=== PATIENT | female | born 1990 | race Caucasian/White ===

== ENCOUNTER → 2016-11-19 | Outpatient (CLI) | payer BC ==
[~2016-11-19] MED LIST: DICL50TA4 PO; LEVO75TA PO; NF-SKEL800 PO; OSLT75CRX PO
--- OUTSIDE RECORDS SUMMARY | 2016-11-19 08:38 | XMS REPORT | Continuity of Care Document ---
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 Plan of Care No plan of care. Functional Status No functional status results. Allergies, Adverse Reactions, Alerts Allergen Type Severity Reaction Status Last Updated No Known Drug Allergies Active 09/05/14 Immunizations Name Given Type Date of Influenza Vaccine 08/04/14 Historical Vital Signs Acute Vital Signs Vital Response Date/Time Temperature (Fahrenheit) 98.2 degrees F (97.6 - 99.5) Temperature (Calculated Celsius) 36.16705 degrees C (36.4 - 37.5) Pulse Rate (adult) 89 bpm (60 - 90) Respiratory Rate 20 bpm (12 - 24) O2 Sat by Pulse Oximetry 99 % (88 - 100) Blood Pressure 144/94 mm Hg Pain Pain Intensity 0 Height (Feet) 5 feet Height (Inches) 7 inches Height (Calculated Centimeters) 170.742676 cm Weight (Pounds) 147 pounds Weight (Calculated Kilograms) 66.710813 kilograms Calculated BMI 23.02 Results Laboratory Results Test Name Result Units Flags Reference Collection Date/Time Result Date/ Time Comments White Blood Count 9.9 10^3/uL 4.3-11.0 09/05/2014 7:59pm 09/05/2014 8: 15pm Red Blood Count 4.46 10^6/uL 4.35-5.85 09/05/2014 7:59pm 09/05/2014 8: 15pm Hemoglobin 13.5 G/DL 11.5-16.0 09/05/2014 7:59pm 09/05/2014 8:15pm Hematocrit 39 % 35-52 09/05/2014 7:59pm 09/05/2014 8:15pm Mean Corpuscular Volume 88 FL 80-99 09/05/2014 7:59pm 09/05/2014 8: 15pm Mean Corpuscular Hemoglobin 30 PG 25-34 09/05/2014 7:59pm 09/05/2014 8: 15pm Mean Corpuscular Hemoglobin Concent 34 G/DL 32-36 09/05/2014 7:59pm 8:15pm Red Cell Distribution Width 12.5 % 10.0-14.5 09/05/2014 7:59pm 2013 8:15pm Platelet Count 232 10^3/uL 130-400 09/05/2014 7:59pm 09/05/2014 8:15pm Mean Platelet Volume 10.2 FL 7.4-10.4 09/05/2014 7:59pm 09/05/2014 8: 15pm Neutrophils (%) (Auto) 71 % 42-75 09/05/2014 7:59pm 09/05/2014 8:15pm Lymphocytes (%) (Auto) 22 % 12-44 09/05/2014 7:59pm 09/05/2014 8:15pm Monocytes (%) (Auto) 6 % 0-12 09/05/2014 7:59pm 09/05/2014 8:15pm Eosinophils (%) (Auto) 1 % 0-10 09/05/2014 7:59pm 09/05/2014 8:15pm Basophils (%) (Auto) 0 % 0-10 09/05/2014 7:59pm 09/05/2014 8:15pm Neutrophils # (Auto) 7.1 X 10^3 1.8-7.8 09/05/2014 7:59pm 09/05/2014 8: 15pm Lymphocytes # (Auto) 2.1 X 10^3 1.0-4.0 09/05/2014 7:59pm 09/05/2014 8: 15pm Monocytes # (Auto) 0.6 X 10^3 0.0-1.0 09/05/2014 7:59pm 09/05/2014 8: 15pm Eosinophils # (Auto) 0.1 10^3/uL 0.0-0.3 09/05/2014 7:59pm 09/05/2014 8 :15pm Basophils # (Auto) 0.0 10^3/uL 0.0-0.1 09/05/2014 7:59pm 09/05/2014 8: 15pm Urine Color YELLOW 09/05/2014 7:50pm 09/05/2014 8:24pm Urine Clarity CLEAR 09/05/2014 7:50pm 09/05/2014 8:24pm Urine pH 7 5-9 09/05/2014 7:50pm 09/05/2014 8:24pm Urine Specific [place] 1.005 * 1.016-1.022 09/05/2014 7:50pm 2013 8:24pm Urine Protein NEGATIVE NEGATIVE 09/05/2014 7:50pm 09/05/2014 8:24pm Urine Glucose (UA) NEGATIVE NEGATIVE 09/05/2014 7:50pm 09/05/2014 8: 24pm Urine RBC (Auto) NEGATIVE NEGATIVE 09/05/2014 7:50pm 09/05/2014 8: 24pm Urine Ketones NEGATIVE NEGATIVE 09/05/2014 7:50pm 09/05/2014 8:24pm Urine Nitrite NEGATIVE NEGATIVE 09/05/2014 7:50pm 09/05/2014 8:24pm Urine Bilirubin NEGATIVE NEGATIVE 09/05/2014 7:50pm 09/05/2014 8: 24pm Urine Urobilinogen NORMAL MG/DL NORMAL 09/05/2014 7:50pm 09/05/2014 8: 24pm Urine Leukocyte Esterase 1+ * NEGATIVE 09/05/2014 7:50pm 09/05/2014 8: 24pm Urine RBC NONE /HPF 09/05/2014 7:50pm 09/05/2014 8:24pm Urine WBC 0-2 /HPF 09/05/2014 7:50pm 09/05/2014 8:24pm Urine Bacteria TRACE /HPF 09/05/2014 7:50pm 09/05/2014 8:24pm Urine Squamous Epithelial Cells 2-5 /HPF 09/05/2014 7:50pm 2013 8:24pm Urine Crystals NONE /LPF 09/05/2014 7:50pm 09/05/2014 8:24pm Urine Casts NONE /LPF 09/05/2014 7:50pm 09/05/2014 8:24pm Urine Mucus NEGATIVE /LPF 09/05/2014 7:50pm 09/05/2014 8:24pm Urine Culture Indicated NO 09/05/2014 7:50pm 09/05/2014 8:24pm Sodium Level 137 MMOL/L 135-145 09/05/2014 7:59pm 09/05/2014 8:34pm Potassium Level 3.6 MMOL/L 3.6-5.0 09/05/2014 7:59pm 09/05/2014 8:34pm Chloride Level 104 MMOL/L 98-107 09/05/2014 7:59pm 09/05/2014 8:34pm Carbon Dioxide Level 21 MMOL/L 21-32 09/05/2014 7:59pm 09/05/2014 8: 34pm Blood Urea Nitrogen 10 MG/DL 7-18 09/05/2014 7:59pm 09/05/2014 8:34pm Creatinine 0.65 MG/DL 0.60-1.30 09/05/2014 7:59pm 09/05/2014 8:34pm BUN/Creatinine Ratio 15 09/05/2014 7:59pm 09/05/2014 8:34pm Estimat Glomerular Filtration Rate > 60 09/05/2014 7:59pm 2013 8:34pm GFR INTERPRETIVE DATA UNITS FOR ESTIMATED GFR (eGFR): mL/min/1.73 M2 REFERENCE RANGE FOR ESTIMATED GFR (eGFR) eGFR NORMAL eGFR >60 MODERATELY DECREASED eGFR 30-59 SEVERLY DECREASED eGFR 15-29 KIDNEY FAILURE <15 (OR DIALYSIS) Glucose Level 82 MG/DL 70-105 09/05/2014 7:59pm 09/05/2014 8:34pm Calcium Level 9.5 MG/DL 8.5-10.1 09/05/2014 7:59pm 09/05/2014 8:34pm Total Bilirubin 0.3 MG/DL 0.1-1.0 09/05/2014 7:59pm 09/05/2014 8:34pm Alkaline Phosphatase 58 U/L 40-136 09/05/2014 7:59pm 09/05/2014 8:34pm Aspartate Amino Transf (AST/SGOT) 12 U/L 5-34 09/05/2014 7:59pm 2013 8:34pm Alanine Aminotransferase (ALT/SGPT) 11 U/L 0-55 09/05/2014 7:59pm 09/05 8:34pm Total Protein 7.4 G/DL 6.4-8.2 09/05/2014 7:59pm 09/05/2014 8:34pm Albumin 3.9 G/DL 3.2-4.5 09/05/2014 7:59pm 09/05/2014 8:34pm Procedures No known history of procedures. Encounters Encounter Location Date/Time Departed Emergency Room [facility] 09/05/14 7:37pm Recent Diagnosis
== END ==
LOC: LAB 08:35
PROVIDERS: ATTEND Nurse Practitioner Women's Health
DX: Z32.00 Encounter for pregnancy test, result unknown (principal)
CPT/HCPCS: 36415; 84702

== ENCOUNTER 2017-07-29 20:29 | Emergency (ER) | payer BC ==
[~2017-07-29] VITALS: Ht 170.2 cm; Wt 68.9 kg
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
--- NOTE | 2017-07-29 20:57 | ED EENT ---
History of Present Illness General Chief Complaint: Facial Problems Stated Complaint: R SIDE DROOPING OF FACE Nursing Triage Note: PT REPORTS R SIDED FACIAL DROOP AND NUMBNESS. SHE STATES SHE IS 8 DAYS POST VAG DELIVERY. SHE DENIES ANY SLURRED SPEECH, VISUAL CHANGES, OR ANY OTHER S/S. Source: patient Exam Limitations: no limitations History of Present Illness Time seen by provider: 20:53 Allergies and Home Medications Allergies Coded Allergies: No Known Drug Allergies (Unverified , 09/05/14) Home Medications Carboxymethylcellulose Sodium 15 Ml Drp.lq.gel, 15 ML OP UD, #1 Ref 0 1-2 gtt to the rt eye qHS scheduled and q3-4hrs prn throughout the daytime. Prescribed by: CONRADO FARIAS on 07/29/172154 Diclofenac Potassium 50 Mg Tablet, 50 MG PO Q6H PRN for PAIN, #30 Ref 0 Prescribed by: URIEL OWENS on 11/07/15136 Levothyroxine Sodium 75 Mcg Tablet, 75 MCG PO, (Reported) Metaxalone 800 Mg Tablet, 800 MG PO Q6H PRN for muscle spasm, #20 Ref 0 Prescribed by: URIEL OWENS on 11/07/15136 Prednisone 10 Mg Tab, 10 MG PO UD, #45 Ref 0 60 mg po daily x5d, then 50 mg po x1, then 40 mg po x1, then 30 mg po x1, then 20 mg po x1, then 10 mg po x1. Prescribed by: CONRADO FARIAS on 07/29/172154 Valacyclovir HCl 1,000 Mg Tablet, 1,000 MG PO BID, #20 Ref 0 Prescribed by: CONRADO FARIAS on 07/29/172154 Past Ipujklr-Oztmox-Tirmeu Hx Patient Social History Alcohol Use: Denies Use Recreational Drug Use: No Smoking Status: Never a Smoker 2nd Hand Smoke Exposure: No Recent Foreign Travel: No Contact w/Someone Who Travel: No Recent Infectious Disease Expo: No Recent Hopitalizations: No Physical Abuse: No Sexual Abuse: No Immunizations Up To Date Date of Influenza Vaccine: Aug 04, 2014 Seasonal Allergies Seasonal Allergies: No Surgeries History of Surgeries: No Respiratory History of Respiratory Disorde: No Cardiovascular History of Cardiac Disorders: No Neurological History of Neurological Disord: No Gastrointestinal History of Gastrointestinal Di: No Musculoskeletal History of Musculoskeletal Dis: No Endocrine History of Endocrine Disorders: Yes Endocrine Disorders: Hypothyroidsim Cancer History of Cancer: No Psychosocial History of Psychiatric Problem: No Suicide Risk Score: 0 Integumentary History of Skin or Integumenta: No Blood Transfusions History of Blood Disorders: No Physical Exam Vital Signs Vital Sign - Last 12Hours 07/29/17 20:42 Temp 98.2 Pulse 96 Resp 20 B/P (MAP) 123/95 Pulse Ox 100 O2 Delivery Room Air Progress/Results/Core Measures Results/Orders Lab Results Laboratory Tests Test 07/29/17 21:10 07/29/17 21:16 Range/Units Urine Color YELLOW Urine Clarity CLEAR Urine pH 6 5-9 Urine Specific [place] 1.020 1.016-1.022 Urine Protein 1+ H NEGATIVE Urine Glucose (UA) NEGATIVE NEGATIVE Urine Ketones NEGATIVE NEGATIVE Urine Nitrite NEGATIVE NEGATIVE Urine Bilirubin NEGATIVE NEGATIVE Urine Urobilinogen NORMAL NORMAL MG/DL Urine Leukocyte Esterase 3+ H NEGATIVE Urine RBC (Auto) 5+ H NEGATIVE Urine RBC 25-50 H /HPF Urine WBC 25-50 H /HPF Urine Squamous Epithelial Cells 5-10 /HPF Urine Crystals NONE /LPF Urine Bacteria FEW H /HPF Urine Casts NONE /LPF Urine Mucus NEGATIVE /LPF Urine Culture Indicated YES Urine Opiates Screen NEGATIVE NEGATIVE Urine Oxycodone Screen NEGATIVE NEGATIVE Urine Methadone Screen NEGATIVE NEGATIVE Urine Propoxyphene Screen NEGATIVE NEGATIVE Urine Barbiturates Screen NEGATIVE NEGATIVE Ur Tricyclic Antidepressants Screen NEGATIVE NEGATIVE Urine Phencyclidine Screen NEGATIVE NEGATIVE Urine Amphetamines Screen NEGATIVE NEGATIVE Urine Methamphetamines Screen NEGATIVE NEGATIVE Urine Benzodiazepines Screen NEGATIVE NEGATIVE Urine Cocaine Screen NEGATIVE NEGATIVE Urine Cannabinoids Screen NEGATIVE NEGATIVE White Blood Count 10.5 4.3-11.0 10^3/uL Red Blood Count 5.19 4.35-5.85 10^6/uL Hemoglobin 16.3 H 11.5-16.0 G/DL Hematocrit 49 35-52 % Mean Corpuscular Volume 94 80-99 FL Mean Corpuscular Hemoglobin 31 25-34 PG Mean Corpuscular Hemoglobin Concent 33 32-36 G/DL Red Cell Distribution Width 12.9 10.0-14.5 % Platelet Count 214 130-400 10^3/uL Mean Platelet Volume 10.2 7.4-10.4 FL Neutrophils (%) (Auto) 65 42-75 % Lymphocytes (%) (Auto) 26 12-44 % Monocytes (%) (Auto) 7 0-12 % Eosinophils (%) (Auto) 1 0-10 % Basophils (%) (Auto) 0 0-10 % Neutrophils # (Auto) 6.9 1.8-7.8 X 10^3 Lymphocytes # (Auto) 2.7 1.0-4.0 X 10^3 Monocytes # (Auto) 0.8 0.0-1.0 X 10^3 Eosinophils # (Auto) 0.1 0.0-0.3 10^3/uL Basophils # (Auto) 0.0 0.0-0.1 10^3/uL Prothrombin Time 12.0 L 12.2-14.7 SEC INR Comment 0.9 0.8-1.4 Activated Partial Thromboplast Time 29 24-35 SEC My Orders Orders - CONRADO FARIAS Saline Lock/Iv-Start (07/29/17 21:08) Ct Head Wo (07/29/17 21:08) Cbc With Automated Diff (07/29/17 21:08) Comprehensive Metabolic Panel (07/29/17 21:08) Drug Screen Stat (Urine) (07/29/17 21:08) Thyroid Analyzer (07/29/17 21:08) Ua Culture If Indicated (07/29/17 21:08) LDH (07/29/17 21:08) Protime With Inr (07/29/17 21:08) Partial Thromboplastin Time (07/29/17 21:08) Urine Culture (07/29/17 21:10) Vital Signs/I&O Vital Sign - Last 12Hours 07/29/17 20:42 Temp 98.2 Pulse 96 Resp 20 B/P (MAP) 123/95 Pulse Ox 100 O2 Delivery Room Air Blood Pressure Mean: 104 Diagnostic Imaging Diagonstic Imaging: CT Plain Films/CT/US/NM/MRI: head Comments FINDINGS: The ventricles are normal in size, shape and position. There is no midline shift or mass effect. There is no hemorrhage or evidence of acute ischemia. The bony calvarium and visualized paranasal sinuses are normal. IMPRESSION: Negative CT head. Dictated on workstation # [id number] Reviewed: Reviewed by Me (radiology report reviewed by me) Departure Impression Impression: Primary Impression: Mcclendon's palsy Additional Impressions: Status post vaginal delivery Urinary tract infection Disposition: 01 HOME, SELF-CARE Condition: Improved Departure-Patient Inst. Decision time for Depature: 21:45 Referrals: URIEL GARCIA DO (PCP/Family) Primary Care Physician Patient Instructions: Mcclendon's Palsy (DC) Add. Discharge Instructions: All discharge instructions reviewed with patient and/or family. Voiced understanding. Medications as instructed. Tylenol and ibuprofen over-the- counter as needed for pain or headache. Tape the right eye shut at bedtime to prevent over drying of the eye. Do not breastfeed for approximately 4 hours after taking the prednisone when the dose is greater than 20 mg per day. Follow -up with Dr. Garcia and your heat engineering teacher this week for recheck, call Monday for appointment time. Return to the emergency department immediately for worsened symptoms, headache, dizziness, changes in vision, slurred speech, changes in behavior, shortness of air, chest pain, seizure, numbness, weakness, or any other concerns. Scripts Cephalexin (Cephalexin) 500 Mg Capsule 500 MG PO TID, #9 CAP 0 Refills Prov: CONRADO FARIAS 07/29/17 Carboxymethylcellulose Sodium (Refresh Liquigel) 15 Ml Drp.lq.gel 15 ML OP UD, #1 DROPS 0 Refills 1-2 gtt to the rt eye qHS scheduled and q3-4hrs prn throughout the daytime. Prov: CONRADO FARIAS 07/29/17 Prednisone (Prednisone) 10 Mg Tab 10 MG PO UD, #45 TAB 0 Refills 60 mg po daily x5d, then 50 mg po x1, then 40 mg po x1, then 30 mg po x1, then 20 mg po x1, then 10 mg po x1. Prov: CONRADO FARIAS 07/29/17 Valacyclovir HCl (Valacyclovir) 1,000 Mg Tablet 1000 MG PO BID, #20 TAB 0 Refills Prov: CONRADO FARIAS 07/29/17 CONRADO FARIAS Jul 29, 2017 20:57
[2017-07-29 21:17] LABS: BILIRUBIN,URINE NEGATIVE (NEGATIVE); KETONES,URINE NEGATIVE (NEGATIVE); LEUKOCYTE ESTERASE ,URINE 3+ (NEGATIVE); NITRITE,URINE NEGATIVE (NEGATIVE); PH,URINE 6 (5-9); PROTEIN,URINE 1+ (NEGATIVE); UROBILINOGEN,URINE NORMAL (NORMAL)
[2017-07-29 21:24] LABS: BASOPHILS % (AUTO) 0 % (0-10); EOSINOPHILS # (AUTO) 0.1 10^3/uL (0.0-0.3); EOSINOPHILS % (AUTO) 1 % (0-10); LYMPHOCYTES # (AUTO) 2.7 X 10^3 (1.0-4.0); LYMPHOCYTES % (AUTO) 26 % (12-44); MEAN CORPUSCULAR HEMOGLOBIN 31 PG (25-34); MEAN CORPUSCULAR HGB CONC 33 G/DL (32-36); MEAN CORPUSCULAR VOLUME 94 FL (80-99); MEAN PLATELET VOLUME 10.2 FL (7.4-10.4); MONOCYTES # (AUTO) 0.8 X 10^3 (0.0-1.0); MONOCYTES % (AUTO) 7 % (0-12); NEUTROPHILS # (AUTO) 6.9 X 10^3 (1.8-7.8); NEUTROPHILS % (AUTO) 65 % (42-75); PLATELET COUNT 214 10^3/uL (130-400); RED BLOOD COUNT 5.19 10^6/uL (4.35-5.85); RED CELL DISTRIBUTION WIDTH 12.9 % (10.0-14.5); WHITE BLOOD COUNT 10.5 10^3/uL (4.3-11.0)
[2017-07-29 21:25] LABS: WBC,URINE 25-50 /HPF
--- NOTE | 2017-07-29 21:30 | Diagnostic Imaging Report ---
PROCEDURE: CT head without contrast. TECHNIQUE: Multiple contiguous axial images were obtained through the brain without the use of intravenous contrast. INDICATION: Facial numbness. COMPARISON: None. FINDINGS: The ventricles are normal in size, shape and position. There is no midline shift or mass effect. There is no hemorrhage or evidence of acute ischemia. The bony calvarium and visualized paranasal sinuses are normal. IMPRESSION: Negative CT head. Dictated by: Dictated on workstation # [id number]
[2017-07-29 21:47] LABS: INR 0.9 (0.8-1.4)
[2017-07-29] MEDS ORDERED: PRD10T PO (21:55)
[2017-07-29] MEDS ORDERED: VALA1000 PO (21:55)
[2017-07-29] MEDS ORDERED: CARB15DR3 OP (21:55)
[2017-07-29] MEDS ORDERED: CEPH500C PO (22:00)
[2017-07-29 22:04] LABS: ALANINE AMINOTRANSFERASE 27 U/L (0-55); ALBUMIN 3.8 GM/DL (3.2-4.5); ANION GAP 13 MMOL/L (5-14); ASPARTATE AMINO TRANSFERASE 23 U/L (5-34); BILIRUBIN,TOTAL 0.5 MG/DL (0.1-1.0); BLOOD UREA NITROGEN 14 MG/DL (7-18); BUN/CREATININE RATIO 18; CARBON DIOXIDE 23 MMOL/L (21-32); CHLORIDE 105 MMOL/L (98-107); CREATININE SERUM 0.77 MG/DL (0.60-1.30); GFR ESTIMATED > 60; GLUCOSE 82 MG/DL (70-105); LACTATE DEHYDROGENASE 219 U/L (125-220); POTASSIUM 3.8 MMOL/L (3.6-5.0); SODIUM 141 MMOL/L (135-145); TOTAL PROTEIN 7.2 GM/DL (6.4-8.2)
[2017-07-29] MEDS ORDERED: ACYCLOVIR 400 MG TABLET (ZOVIRAX) PO ONE (22:39)
[2017-07-29] MEDS ORDERED: predniSONE 20 MG TAB PO ONE (22:45)
[2017-07-29 22:52] VITALS: BP 109/79
[2017-07-30] MEDS ORDERED: ACYCLOVIR 200 MG CAP (ZOVIRAX) PO SCH (07:00)
== END 2017-07-29 22:52 | disposition home or self-care (01) ==
LOC: EDUNIT# 20:29 → ER 20:30
DX: O99.355 Diseases of the nervous system complicating the puerperium (principal); G51.0 Bell's palsy; O86.20 Urinary tract infection following delivery, unspecified; O99.285 Endocrine, nutritional and metabolic diseases complicating the puerperium; E03.9 Hypothyroidism, unspecified
CPT/HCPCS: 36415; 70450; 80053; 80306; 81000; 83615; 84443; 85025; 85610; 85730; 87088

== ENCOUNTER → 2018-06-16 | Outpatient (CLI) | payer BC ==
[~2018-06-16] MED LIST changes: +CARB15DR3 OP; +CEPH500C PO; +PRD10T PO; +VALA1000 PO
== END ==
LOC: LAB 10:32
PROVIDERS: ATTEND Nurse Practitioner Women's Health
DX: Z32.01 Encounter for pregnancy test, result positive (principal); E03.9 Hypothyroidism, unspecified
CPT/HCPCS: 36415; 84443; 84702

== ENCOUNTER 2018-08-27 08:23 | Emergency (ER) | payer BC ==
[~2018-08-27] VITALS: Ht 170.2 cm; Wt 68.9 kg
[2018-08-27 08:58] VITALS: BP 108/58
--- NOTE | 2018-08-27 09:02 | ED GU-Female ---
General Chief Complaint: -Female Stated Complaint: VAGINAL BLEEDING;15 WKS Nursing Triage Note: PT PRESENTS TO ER WITH COMPLAINT OF BRIGHT RED BLEEDING. PT STATES SHE IS 15 WEEKS AND HAS SUSPECTED PLACENTA PREVIA. PT STATES BLEEDING STARTED THIS MORNING. Nursing Sepsis Screen: No Definite Risk Source: patient, family (mom) Exam Limitations: no limitations History of Present Illness Date Seen by Provider: Aug 27, 2018 Time Seen by Provider: 08:45 Initial Comments The patient presents to ER by private conveyance with her mother and chief complaint that she woke up this morning with some blood clots in her legs. She is a with one miscarriage. She is 14 weeks and 4 days by pinprick V Pal fertilization. She sees Dr. Locke, EXTERNAL RELATIONS MANAGER in [place], [place]. She's not having any pain cramping fevers sweats chills nausea vomiting. Last intercourse was over a week ago. Allergies and Home Medications Allergies Coded Allergies: No Known Drug Allergies (Unverified , 09/05/14) Home Medications Carboxymethylcellulose Sodium 15 Ml Drp.lq.gel, 15 ML OP UD 1-2 gtt to the rt eye qHS scheduled and q3-4hrs prn throughout the daytime. Prescribed by: CONRADO FARIAS on 07/29/172154 Cephalexin 500 Mg Capsule, 500 MG PO TID Prescribed by: CONRADO FARIAS on 07/29/172199 Diclofenac Potassium 50 Mg Tablet, 50 MG PO Q6H PRN for PAIN Prescribed by: URIEL OWENS on 11/07/15136 Metaxalone 800 Mg Tablet, 800 MG PO Q6H PRN for muscle spasm Prescribed by: URIEL OWENS on 11/07/15136 Prednisone 10 Mg Tab, 10 MG PO UD 60 mg po daily x5d, then 50 mg po x1, then 40 mg po x1, then 30 mg po x1, then 20 mg po x1, then 10 mg po x1. Prescribed by: CONRADO FARIAS on 07/29/172154 Valacyclovir HCl 1,000 Mg Tablet, 1,000 MG PO BID Prescribed by: CONRADO FARIAS on 07/29/172154 Patient Home Medication List Home Medication List Reviewed: Yes Review of Systems Review of Systems Constitutional: No chills, No diaphoresis EENTM: No ear discharge, No ear pain Respiratory: No cough, No short of breath Cardiovascular: No chest pain, No edema Gastrointestinal: No abdominal pain, No nausea, No vomiting Genitourinary: see HPI; denies burning, denies discharge, denies dysuria Past Fyaxegg-Abiioe-Wxsaom Hx Patient Social History Alcohol Use: Denies Use Recreational Drug Use: No Smoking Status: Never a Smoker 2nd Hand Smoke Exposure: No Recent Foreign Travel: No Contact w/Someone Who Travel: No Recent Infectious Disease Expo: No Recent Hopitalizations: No Immunizations Up To Date Date of Influenza Vaccine: Aug 04, 2014 Seasonal Allergies Seasonal Allergies: No Past Medical History Surgeries: No Respiratory: No Cardiac: No Neurological: No Female Reproductive Disorders: Denies Genitourinary: No Gastrointestinal: No Musculoskeletal: No Endocrine: Yes Hypothyroidsim Cancer: No Psychosocial: No Integumentary: No Blood Disorders: No Family Medical History Other Conditions/Hx Physical Exam Vital Signs Vital Signs - First Documented 08/27/18 08:35 Temp 98.0 Pulse 83 Resp 18 B/P (MAP) 108/58 (75) Pulse Ox 99 O2 Delivery Room Air Capillary Refill : Less Than 3 Seconds Height, Weight, BMI Height: 5'7.00" Weight: 152lbs. oz. 68.186024xj; 23.02 BMI Method:Stated General Appearance: WD/WN, no apparent distress HEENT: PERRL/EOMI, pharynx normal Cardiovascular: normal peripheral pulses, regular rate, rhythm, no edema Respiratory: no respiratory distress, no accessory muscle use Progress/Results/Core Measures Suspected Sepsis Recent Fever Within 48 Hours: No Infection Criteria Present: None New/Unexplained Altered Menta: No Sepsis Screen: No Definite Risk SIRS Temperature:98.0 Pulse: 83 Respiratory Rate: 18 Blood Pressure 108 /58 Mean: 75 Results/Orders My Orders Orders - AIDA SAMAYOA Cbc With Automated Diff (08/27/18 08:49) Comprehensive Metabolic Panel (08/27/18 08:49) Drug Screen Stat (Urine) (08/27/18 08:49) Hcg,Quantitative (08/27/18 08:49) Ua Culture If Indicated (08/27/18 08:49) Abo Rh Type (08/27/18 08:49) Vital Signs/I&O 08/27/18 08:35 Temp 98.0 Pulse 83 Resp 18 B/P (MAP) 108/58 (75) Pulse Ox 99 O2 Delivery Room Air Capillary Refill : Less Than 3 Seconds Blood Pressure Mean: 75 Progress Note : Time: 09:00 Progress Note Painless vaginal bleeding at 14 weeks 4 days. Patient says she had a ultrasound at 10 weeks showing a low-lying placenta by her EXTERNAL RELATIONS MANAGER. The fact that she used IVF means we have good dating and is very unlikely that she would have an ectopic . Also not having any pain. Plan is to check her blood type and urinalysis. We have offered to do pelvic exam to examine the cervix. The patient asked about doing an ultrasound and there is very little chance that there would be a ectopic or surgical emergency. Encourage him that there is no emergent need for ultrasound that we would offer to do one if they wanted 1. We have also encouraged him that regardless of our findings and we would treat her appropriately and then refer her back to EXTERNAL RELATIONS MANAGER. The patient says she called her OB and left a message on the voicemail's morning. After discussing the plan she called her OB again and then decided she would just go see the OB in his office today. Departure Impression Primary Impression: Vaginal bleeding before 22 weeks gestation Disposition: 01 HOME, SELF-CARE Condition: Stable Departure-Patient Inst. Decision time for Depature: 09:03 Referrals: URIEL STARK DO (PCP/Family) Primary Care Physician Patient Instructions: Bleeding With (DC) Add. Discharge Instructions: Please follow up today with your EXTERNAL RELATIONS MANAGER. All discharge instructions reviewed with patient and/or family. Voiced understanding. AIDA SAMAYOA Aug 27, 2018 09:02
== END 2018-08-27 08:58 | disposition home or self-care (01) ==
LOC: EDUNIT# 08:23 → ER 08:24
DX: O20.9 Hemorrhage in early pregnancy, unspecified (principal); O99.282 Endocrine, nutritional and metabolic diseases complicating pregnancy, second trimester; E03.9 Hypothyroidism, unspecified; Z3A.15 15 weeks gestation of pregnancy; Z79.52 Long term (current) use of systemic steroids
CPT/HCPCS: 99282

== ENCOUNTER → 2019-05-06 | Outpatient (CLI) | payer BC ==
--- NOTE | 2019-05-06 15:28 | Diagnostic Imaging Report ---
PROCEDURE: US Thyroid. TECHNIQUE: Multiple real-time grayscale images were obtained of the thyroid in various projections. INDICATION: Hypothyroidism. FINDINGS: The previous thyroid ultrasound exam performed on 08/14/2013 failed to show any sign of an abnormality of the thyroid gland. On this study, the overall appearance of the thyroid gland has not changed significantly. The gland is not enlarged with the right lobe measuring 3.6 x 0.9 x 1.0 cm while the left lobe is estimated to be 3.9 x 1.0 x 1.0 cm (normal gland size 4-5 x 2 x 2 cm or less). As on the prior exam, each lobe is fairly homogeneous. There is no discrete solid or cystic mass evident. IMPRESSION: The thyroid gland is stable in appearance when compared to the prior study. No new abnormality has developed. Dictated by: Dictated on workstation # [id number]
== END ==
LOC: RAD 13:43
PROVIDERS: ATTEND Nurse Practitioner Family
DX: Z00.01 Encounter for general adult medical examination with abnormal findings (principal); E03.8 Other specified hypothyroidism
CPT/HCPCS: 76536

== ENCOUNTER → 2019-10-18 | Outpatient (CLI) | payer BC | LOC: LAB 12:00 | PROVIDERS: ATTEND Nurse Practitioner Family | DX: Z13.9 Encounter for screening, unspecified (principal) | CPT/HCPCS: 36415; 82306 ==

== ENCOUNTER → 2019-11-20 | Outpatient (CLI) | payer BC | LOC: LAB 12:23 | PROVIDERS: ATTEND Obstetrics & Gynecology Reproductive Endocrinology | DX: Z32.00 Encounter for pregnancy test, result unknown (principal) | CPT/HCPCS: 36415; 84702 ==

== ENCOUNTER → 2021-02-24 | Outpatient (CLI) | payer BC ==
[~2021-02-24] MED LIST changes: -VALA1000 PO; +VALA10007 PO
== END ==
LOC: LAB 16:09
DX: Z32.00 Encounter for pregnancy test, result unknown (principal)
CPT/HCPCS: 36415; 84702

== ENCOUNTER → 2021-02-26 | Outpatient (CLI) | payer BC | LOC: LAB 13:27 | PROVIDERS: ATTEND Obstetrics & Gynecology Reproductive Endocrinology | DX: Z32.00 Encounter for pregnancy test, result unknown (principal) | CPT/HCPCS: 36415; 84702 ==

== ENCOUNTER → 2021-03-31 | Outpatient (CLI) | payer BC | LOC: LAB 14:17 | PROVIDERS: ATTEND Obstetrics & Gynecology Reproductive Endocrinology | DX: N97.9 Female infertility, unspecified (principal) | CPT/HCPCS: 36415; 82670; 83002; 84144 ==

== ENCOUNTER → 2021-04-01 | Outpatient (CLI) | payer BC ==
--- NOTE | 2021-04-01 10:40 | Diagnostic Imaging Report ---
PROCEDURE: US Non-ob pelvis comp/trans. TECHNIQUE: Multiple realtime grayscale images were obtained of the pelvis in various projections endovaginally. Transabdominal imaging was also performed. Pelvic ultrasound at 820 hours. INDICATION: Female infertility. The previous pelvic ultrasound exam of 09/06/2016 noted bilateral ovarian follicles but failed to show any sign of an acute pelvic abnormality. On this exam, the uterus is nongravid and not enlarged measuring 8.8 x 4.0 x 5.3 cm. The endometrial line is not thickened measuring 5-6 mm. There is no focal mass involving the uterus to suggest a fibroid. Both ovaries were identified. There appear to be at least 4 follicles under 10 mm associated with each ovary. This includes a 5.1, 5.0, 6.4 and 4.0 cm follicles arising from the right ovary. There is also a 3.1 and 3.7, 3.2 and 4.2 mm follicle arising from the left ovary. There is no solid pelvic mass or free fluid collection noted. IMPRESSION: 1. There is no evidence for an acute pelvic abnormality. 2. There are bilateral subcentimeter follicles arising from each ovary as described above. Dictated by: Dictated on workstation # [id number]
== END ==
LOC: RAD 08:00
PROVIDERS: ATTEND Obstetrics & Gynecology Reproductive Endocrinology
DX: N97.9 Female infertility, unspecified (principal); N83.9 Noninflammatory disorder of ovary, fallopian tube and broad ligament, unspecified
CPT/HCPCS: 76830; 76856

== ENCOUNTER → 2021-04-16 | Outpatient (CLI) | payer BC ==
--- NOTE | 2021-04-16 14:25 | Diagnostic Imaging Report ---
PROCEDURE: Pelvic comp/transvaginal sonogram. TECHNIQUE: Complete transabdominal and transvaginal pelvic ultrasound was performed. In addition, limited pelvic Doppler was performed. INDICATION: Infertility. FINDINGS: Uterus is anteverted measuring 9.5 x 3.9 x 6.0 cm. Endometrium is 8 mm in thickness. No myometrial mass is detected. Right ovary measures 3.0 x 1.7 x 1.5 cm and left ovary measures 2.9 x 1.5 x 2.1 cm. There is blood flow to both ovaries. Right ovary contains several follicles, largest approximately 9 mm x 7 mm. Left ovary contains multiple follicles, the largest 7 mm x 4 mm. No free fluid is seen. IMPRESSION: Unremarkable transabdominal and transvaginal pelvic ultrasound. Dictated by: Dictated on workstation # [id number]
== END ==
LOC: RAD 13:00
PROVIDERS: ATTEND Obstetrics & Gynecology Reproductive Endocrinology
DX: N97.9 Female infertility, unspecified (principal)
CPT/HCPCS: 36415; 76830; 76856; 82670; 83002; 84144

== ENCOUNTER → 2021-06-29 | Outpatient (CLI) | payer BC ==
--- NOTE | 2021-06-29 14:33 | Diagnostic Imaging Report ---
PROCEDURE: US Non-ob pelvis comp/trans. TECHNIQUE: Multiple realtime grayscale images were obtained of the pelvis in various projections endovaginally. Transabdominal imaging was also performed. INDICATION: Follicular study. FINDINGS: Uterus measures 8.8 x 4.5 x 5.7 cm. Right ovary measures 2.8 x 1.6 x 1.5 cm. Left ovary measures 1.3 x 2.1 x 1.8 cm. There appear to be 2 follicular cysts measuring less than 1 cm within the left ovary. There appear to be 3 follicular cyst in the right ovary measuring less than 1 cm. There is normal blood flow to both ovaries. IMPRESSION: There are a few bilateral subcentimeter cyst. No follicles are demonstrated that measure 1 cm or greater. Dictated by: Dictated on workstation # [id number]
== END ==
LOC: RAD 12:30
PROVIDERS: ATTEND Obstetrics & Gynecology Reproductive Endocrinology
DX: N83.202 Unspecified ovarian cyst, left side (principal); N83.201 Unspecified ovarian cyst, right side; N97.9 Female infertility, unspecified
CPT/HCPCS: 76830; 76856

== ENCOUNTER → 2021-07-12 | Outpatient (CLI) | payer BC ==
--- NOTE | 2021-07-12 11:55 | Diagnostic Imaging Report ---
PROCEDURE: Pelvic comp/transvaginal sonogram. TECHNIQUE: Complete transabdominal and transvaginal pelvic ultrasound was performed. In addition, limited pelvic Doppler was performed. INDICATION: Evaluate endometrial lining. Uterus is anteverted measuring 9.3 x 4.5 x 6.4 cm. Endometrium is 7 mm in thickness. No myometrial mass is detected. Right ovary measures 2.7 x 1.5 x 1.5 cm and left ovary measures 1.7 x 2.3 x 1.5 cm. There is blood flow to both ovaries. Both ovaries contain small follicles. No follicles greater than 10 mm are identified. No adnexal mass or free fluid is detected. IMPRESSION: Unremarkable transabdominal and transvaginal pelvic ultrasound. Dictated by: Dictated on workstation # [id number]
== END ==
LOC: RAD 10:00
PROVIDERS: ATTEND Obstetrics & Gynecology Reproductive Endocrinology
DX: E28.9 Ovarian dysfunction, unspecified (principal); N97.9 Female infertility, unspecified
CPT/HCPCS: 76830; 76856

== ENCOUNTER → 2021-07-29 | Outpatient (CLI) | payer BC | LOC: LAB 10:30 | PROVIDERS: ATTEND Obstetrics & Gynecology Reproductive Endocrinology | DX: E28.8 Other ovarian dysfunction (principal) | CPT/HCPCS: 36415; 84702 ==

== ENCOUNTER → 2022-07-11 | Outpatient (CLI) | payer BC ==
--- NOTE | 2022-07-12 14:46 | Diagnostic Imaging Report ---
INDICATION: Routine screening. COMPARISON: 06/09/2021. TECHNIQUE: 2D and 3D bilateral screening mammography was performed with CAD. FINDINGS: Both breasts are heterogeneously dense, limiting the sensitivity of mammography. There is a density in the far posterior right breast on the MLO view at the nipple line. Additional views are recommended. The left breast is unremarkable. There are scattered benign calcifications. No malignant-appearing microcalcifications are seen. The axillae are unremarkable. IMPRESSION: Right breast density. Additional views are recommended for further evaluation. ACR BI-RADS Category 0: Incomplete. (Needs additional imaging evaluation). Result letter will be mailed to the patient. Note: At least 10% of breast cancer is not imaged by mammography. Dictated by: Dictated on workstation # [id number]
== END ==
LOC: RAD 14:45
PROVIDERS: ATTEND Obstetrics & Gynecology
DX: Z12.31 Encounter for screening mammogram for malignant neoplasm of breast (principal)
CPT/HCPCS: 77063; 77067

== ENCOUNTER → 2022-07-20 | Outpatient (CLI) | payer BC ==
--- NOTE | 2022-07-20 09:48 | Diagnostic Imaging Report ---
INDICATION: Right breast density. Patient presents for additional views. COMPARISON: Correlation is made with the screening study from 07/11/2022. TECHNIQUE: Unilateral right 2D and 3D diagnostic mammography was performed. This included spot compression exaggerated CC and MLO views as well as conventional exaggerated CC and ML views. The current study was evaluated with a Computer Aided Detection (CAD) system. FINDINGS: The additional views fail to demonstrate a discrete mass. The area of density noted posteriorly in the right breast appears to represent fibroglandular tissue. There are scattered benign calcifications. IMPRESSION: The additional views fail to demonstrate a discrete mass. The patient may return to routine annual screening mammography. ACR BI-RADS Category 2: Benign findings. Result letter will be mailed to the patient. Note: At least 10% of breast cancer is not imaged by mammography. Dictated by: Dictated on workstation # [id number]
== END ==
LOC: RAD 08:57
PROVIDERS: ATTEND Obstetrics & Gynecology
DX: R92.2 Inconclusive mammogram (principal)
CPT/HCPCS: 77065; G0279

== ENCOUNTER 2022-12-25 22:36 | Emergency (ER) | payer BC ==
[~2022-12-25] VITALS: Ht 170 cm; Wt 72.5 kg
[2022-12-25 22:41] VITALS: BP 114/62
[2022-12-25] MEDS ORDERED: KETOROLAC 30 MG/ML VIAL IVP STA (22:51)
[2022-12-25 22:58] LABS: BASOPHILS % (AUTO) 0 % (0-10); EOSINOPHILS # (AUTO) 0.1 10^3/uL (0.0-0.3); EOSINOPHILS % (AUTO) 1 % (0-10); HEMATOCRIT 40 % (35-52); HEMOGLOBIN 13.5 g/dL (11.5-16.0); LYMPHOCYTES # (AUTO) 3.4 10^3/uL (1.0-4.0); LYMPHOCYTES % (AUTO) 35 % (12-44); MEAN CORPUSCULAR HEMOGLOBIN 30 pg (25-34); MEAN CORPUSCULAR HGB CONC 33 g/dL (32-36); MEAN CORPUSCULAR VOLUME 91 fL (80-99); MEAN PLATELET VOLUME 10.4 fL (9.0-12.2); MONOCYTES # (AUTO) 0.7 10^3/uL (0.0-1.0); MONOCYTES % (AUTO) 7 % (0-12); NEUTROPHILS # (AUTO) 5.3 10^3/uL (1.8-7.8); NEUTROPHILS % (AUTO) 56 % (42-75); PLATELET COUNT 240 10^3/uL (130-400); WHITE BLOOD COUNT 9.6 10^3/uL (4.3-11.0)
[2022-12-25 23:00] LABS: BILIRUBIN,URINE NEGATIVE (NEGATIVE); CLARITY,URINE CLEAR; COLOR,URINE YELLOW; GLUCOSE, URINE (UA) NEGATIVE (NEGATIVE); KETONES,URINE TRACE (NEGATIVE); LEUKOCYTE ESTERASE ,URINE TRACE (NEGATIVE); NITRITE,URINE NEGATIVE (NEGATIVE); PH,URINE 6.5 (5-9); PROTEIN,URINE 1+ (NEGATIVE)
[2022-12-25] MEDS ORDERED: ONDANSETRON 4 MG/2 ML (SDV) Z0FRAN IVP ONE (23:00)
[2022-12-25] MEDS ORDERED: LACTATED RINGERS 1,000 ML IV ONE (23:00)
--- NOTE | 2022-12-25 23:01 | ED Back Pain ---
General Chief Complaint: Abdominal/GI Problems Stated Complaint: RIGHT FLANK PAIN Nursing Triage Note: pt presents to ED with c/o right flank pain that began around 2200 accompanied by n/v. pt is restless and writhing around in pain at triage. pt denies difficulty urinating or painful urination. Source of Information: Patient History of Present Illness Date Seen by Provider: Dec 25, 2022 Time Seen by Provider: 22:50 Initial Comments PT ARRIVES VIA POV FROM HOME WITH MALE C/O SUDDEN ONSET OF SEVERE RIGHT FLANK PAIN WITH NAUSEA AND VOMITING AT 2200 TONIGHT RATES PAIN 10/10 VOMITED MULTIPLE TIMES IN SUCCESSION NO DIARRHEA NO URINARY SYMPTOMS HAS NOT TAKEN ANYTHING FOR PAIN NO HISTORY OF SIMILAR LMP 12/15-12/19/22. NORMAL. MALE S.O. WITH VASECTOMY PT HAS HISTORY OF HYPOTHYROIDISM AND NIDDM Allergies and Home Medications Allergies Coded Allergies: No Known Drug Allergies (Unverified , 09/05/14) Patient Home Medication List Carboxymethylcellulose Sodium (Refresh Liquigel) 15 Ml Drp.lq.gel, 15 ML OP UD Prescribed by: CONRADO FARIAS on 07/29/172154 Cephalexin (Cephalexin) 500 Mg Capsule, 500 MG PO TID Prescribed by: CONRADO FARIAS on 07/29/172199 Diclofenac Potassium (Diclofenac Potassium) 50 Mg Tablet, 50 MG PO Q6H PRN for PAIN Prescribed by: URIEL OWENS on 11/07/15136 Levothyroxine Sodium (Synthroid) 75 Mcg Tablet, 75 MCG PO, (Reported) Entered as Reported by: KAMI JASSO on 11/06/152326 Metaxalone (Skelaxin) 800 Mg Tablet, 800 MG PO Q6H PRN for muscle spasm Prescribed by: URIEL OWENS on 11/07/15136 Prednisone (Prednisone) 10 Mg Tab, 10 MG PO UD Prescribed by: CONRADO FARIAS on 07/29/172154 Valacyclovir HCl (Valacyclovir) 1,000 Mg Tablet, 1,000 MG PO BID Prescribed by: CONRADO FARIAS on 07/29/172154 Review of Systems Constitutional: no symptoms reported Respiratory: no symptoms reported Cardiovascular: no symptoms reported Gastrointestinal: see HPI, abdominal pain, nausea, vomiting Genitourinary: see HPI : No Control/STD Prophylaxis: Other (PARTNER WITH VASECTOMY) Musculoskeletal: see HPI, back pain Past Mltefyj-Wtesxu-Hadbzt Hx Seasonal Allergies Seasonal Allergies: No Past Medical History Surgeries: No Respiratory: No Cardiac: No Neurological: No Female Reproductive Disorders: Denies Genitourinary: No Gastrointestinal: No Musculoskeletal: No Endocrine: Yes Hypothyroidsim Cancer: No Psychosocial: No Integumentary: No Blood Disorders: No Family Medical History Other Conditions/Hx Physical Exam Vital Signs Vital Signs - First Documented 12/25/22 22:41 Temp 36.4 Pulse 77 Resp 20 B/P (MAP) 114/62 (79) Pulse Ox 97 O2 Delivery Room Air Capillary Refill : Less Than 3 Seconds Height, Weight, BMI Height: 5'7.00" Weight: 152lbs. oz. 68.024084cx; 25.00 BMI Method:Stated General Appearance: WD/WN, Other (LOOKS UNCOMFORTABLE, PACING, UNABLE TO SIT STILL OR LAY DOWN. 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 Norm as Tested Skin: Normal Color, Warm/Dry Progress/Results/Core Measures Results/Orders Lab Results Laboratory Tests Test 12/25/22 22:49 Range/Units White Blood Count 9.6 4.3-11.0 10^3/uL Red Blood Count 4.45 3.80-5.11 10^6/uL Hemoglobin 13.5 11.5-16.0 g/dL Hematocrit 40 35-52 % Mean Corpuscular Volume 91 80-99 fL Mean Corpuscular Hemoglobin 30 25-34 pg Mean Corpuscular Hemoglobin Concent 33 32-36 g/dL Red Cell Distribution Width 12.7 10.0-14.5 % Platelet Count 240 130-400 10^3/uL Mean Platelet Volume 10.4 9.0-12.2 fL Immature Granulocyte % (Auto) 0 % Neutrophils (%) (Auto) 56 42-75 % Lymphocytes (%) (Auto) 35 12-44 % Monocytes (%) (Auto) 7 0-12 % Eosinophils (%) (Auto) 1 0-10 % Basophils (%) (Auto) 0 0-10 % Neutrophils # (Auto) 5.3 1.8-7.8 10^3/uL Lymphocytes # (Auto) 3.4 1.0-4.0 10^3/uL Monocytes # (Auto) 0.7 0.0-1.0 10^3/uL Eosinophils # (Auto) 0.1 0.0-0.3 10^3/uL Basophils # (Auto) 0.0 0.0-0.1 10^3/uL Immature Granulocyte # (Auto) 0.0 0.0-0.1 10^3/uL Urine Color YELLOW Urine Clarity CLEAR Urine pH 6.5 5-9 Urine Specific [place] 1.025 H 1.016-1.022 Urine Protein 1+ H NEGATIVE Urine Glucose (UA) NEGATIVE NEGATIVE Urine Ketones TRACE H NEGATIVE Urine Nitrite NEGATIVE NEGATIVE Urine Bilirubin NEGATIVE NEGATIVE Urine Urobilinogen 0.2 < = 1.0 MG/DL Urine Leukocyte Esterase TRACE H NEGATIVE Urine RBC (Auto) 3+ H NEGATIVE Urine RBC 5-10 H /HPF Urine WBC 0-2 /HPF Urine Squamous Epithelial Cells 0-2 /HPF Urine Crystals NONE /LPF Urine Bacteria TRACE /HPF Urine Casts NONE /LPF Urine Mucus NEGATIVE /LPF Urine Culture Indicated NO Sodium Level 142 135-145 MMOL/L Potassium Level 3.6 3.6-5.0 MMOL/L Chloride Level 109 H 98-107 MMOL/L Carbon Dioxide Level 23 21-32 MMOL/L Anion Gap 10 5-14 MMOL/L Blood Urea Nitrogen 13 7-18 MG/DL Creatinine 0.79 0.60-1.30 MG/DL Estimat Glomerular Filtration Rate 101 BUN/Creatinine Ratio 16 Glucose Level 104 70-105 MG/DL Calcium Level 9.1 8.5-10.1 MG/DL Corrected Calcium 9.1 8.5-10.1 MG/DL Total Bilirubin 0.3 0.1-1.0 MG/DL Aspartate Amino Transf (AST/SGOT) 15 5-34 U/L Alanine Aminotransferase (ALT/SGPT) 16 0-55 U/L Alkaline Phosphatase 57 40-136 U/L Total Protein 6.7 6.4-8.2 GM/DL Albumin 4.0 3.2-4.5 GM/DL Serum Test, Qualitative NEGATIVE NEGATIVE My Orders Orders - BILL MENDOZA DO Ed Iv/Invasive Line Start (12/25/22 22:51) Monitor-Rhythm Ecg Trace Only (12/25/22 22:51) Ct Abd/Pelvis Wo(Kidney Stone) (12/25/22 22:51) Abdomen/Kub 1view (12/25/22 22:51) Cbc With Automated Diff (12/25/22 22:51) Comprehensive Metabolic Panel (12/25/22 22:51) Hcg,Qualitative Serum (12/25/22 22:51) Ua Culture If Indicated (12/25/22 22:51) Ed Iv/Invasive Line Start (12/25/22 22:51) Lactated Ringers (Lr 1000 Ml Iv Solution (12/25/22 23:00) Ondansetron Injection (Zofran Injectio (12/25/22 23:00) Ketorolac Injection (Toradol Injection) (12/25/22 22:51) Medications Given in ED Current Medications Medications Dose Ordered Sig/Vitaliy Route Start Time Stop Time Status Last Admin Dose Admin Lactated Ringer's 1,000 ml @ 0 mls/hr Q0M ONCE IV 12/25/22 23:00 12/25/22 23:01 DC 12/25/22 23:04 1,000 MLS/HR Ondansetron HCl 4 mg ONCE ONCE IVP 12/25/22 23:00 12/25/22 23:01 DC 12/25/22 23:03 4 MG Vital Signs/I&O 12/25/22 22:41 Temp 36.4 Pulse 77 Resp 20 B/P (MAP) 114/62 (79) Pulse Ox 97 O2 Delivery Room Air Blood Pressure Mean: 79 Progress Progress Note : Progress Note GIVEN : -TORADOL WITH SIGNIFICANT IMPROVEMENT IN PAIN--PAIN DOWN TO 2-3/10 -ZOFRAN--NAUSEA RESOLVED PAIN BEGINNING TO MOVE TO RLQ/RIGHT PELVIC AREA DURING ER STAY Diagnostic Imaging Comments KUB--PENDING RADIOLOGIST REVIEW -CALCIFICATIONS OVER AREAS OF KIDNEYS, AND IN RLQ -NO ACUTE BOWEL PROCESS. CT ABDOMEN/PELVIS--PER [facility] VIA FAX AT Reviewed: Reviewed by Me Departure Impression Primary Impression: MULTIPLE RIGHT URETERAL STONES Additional Impression: BILATERAL INTRARENAL STONES Disposition: HOME, SELF-CARE Condition: Improved Departure-Patient Inst. Decision time for Depature: 00:10 Referrals: URIEL STARK DO (PCP/Family) Primary Care Physician Patient Instructions: Kidney Stone, Adult ED Add. Discharge Instructions: STRAIN ALL URINE--RETURN ANY STONES TO UROLOGIST OFFICE LOTS OF CLEAR LIQUIDS, ESPECIALLY WATER NO COFFEE, POP OR TEA FOLLOW UP WITH [facility] UROLOGIST OF CHOICE THIS WEEK--CALL IN AM TO SCHEDULE APPOINTMENT RETURN TO ER IF SYMPTOMS WORSEN All discharge instructions reviewed with patient and/or family. Voiced understanding. Scripts Ketorolac Tromethamine (Ketorolac Tromethamine) 10 Mg Tablet 10 MG PO Q6H for Pain, #15 TAB Prov: BILL MENDOZA DO 12/26/22 Hydrocodone/Acetaminophen (Hydrocodone-Acetamin 5-325 mg) 5 Mg-325 Mg Tablet 1 EACH PO Q4-6 HOURS PRN for PAIN, #20 TAB Prov: BILL MENDOZA DO 12/26/22 Ondansetron (Ondansetron Odt) 8 Mg Tab.rapdis 8 MG PO Q6H, #10 TAB Prov: BILL MENDOZA DO 12/26/22 Tamsulosin HCl (Flomax) 0.4 Mg Cap 0.4 MG PO DAILY, #10 CAP Prov: BILL MENDOZA DO 12/26/22 Ciprofloxacin HCl (Ciprofloxacin HCl) 500 Mg Tablet 500 MG PO BID, #14 TAB Prov: BILL MENDOZA DO 12/26/22 BILL MENDOZA DO Dec 25, 2022 23:01
[2022-12-25 23:07] LABS: BACTERIA,URINE TRACE /HPF; SQUAMOUS EPITHELIAL CELL,UR 0-2 /HPF; WBC,URINE 0-2 /HPF
[2022-12-25 23:19] LABS: BILIRUBIN,TOTAL 0.3 MG/DL (0.1-1.0); CALCIUM 9.1 MG/DL (8.5-10.1); CREATININE SERUM 0.79 MG/DL (0.60-1.30); POTASSIUM 3.6 MMOL/L (3.6-5.0); TOTAL PROTEIN 6.7 GM/DL (6.4-8.2)
[2022-12-26] MEDS ORDERED: RX-ONDANSETRON 4 MG ODT (ZOFRAN) PPK #4 PO STA (00:16)
[2022-12-26] MEDS ORDERED: KETO10TA PO (00:22)
[2022-12-26] MEDS ORDERED: ACHD5005 PO (00:22)
[2022-12-26] MEDS ORDERED: ONDA8TAB13 PO (00:22)
[2022-12-26] MEDS ORDERED: CIPR500T5 PO (00:22)
[2022-12-26] MEDS ORDERED: TMSL.4C PO (00:22)
[2022-12-26] MEDS ORDERED: TAMSULOSIN 0.4 MG (FLOMAX) CAP PO SCH (00:30)
[2022-12-26] MEDS ORDERED: CIPROFLOXACIN 500 MG (CIPRO) TABLET PO SCH (00:30)
[2022-12-26] MEDS ORDERED: HYDROcodone/APAP 5 MG/325 MG (LORTAB) TAB PO ONE (00:30)
--- NOTE | 2022-12-26 08:14 | Diagnostic Imaging Report ---
HISTORY: Abdominal pain COMPARISON: CT from 12/25/2022 TECHNIQUE: Frontal views of the abdomen FINDINGS: No distended loops of bowel are seen. There is no large collection of free air. Numerous calculi are seen in the kidneys bilaterally, left more than right. The previously seen 4 calculi are seen along the course of the right ureter on the prior CT are visible radiographically, projecting over the right sacrum, right pelvis, and lower right pelvis. There is mild left convex curvature of the lumbar spine. No acute osseous abnormality is seen. IMPRESSION: 1. 4 calculi seen along the course of the right ureter, corresponding with previous CT findings. 2. Additional calculi in the kidneys bilaterally. Dictated by: Dictated on workstation # [id number]
--- NOTE | 2022-12-26 08:17 | Diagnostic Imaging Report ---
EXAMINATION: CT abdomen and pelvis without contrast. TECHNIQUE: Multiple contiguous axial images were obtained through the abdomen and pelvis without the use of intravenous contrast. All CT scans use one or more of the following dose optimizing techniques: automated exposure control, MA and/or KvP adjustment based on patient size and exam type or iterative reconstruction. HISTORY: Flank pain COMPARISON: None available. FINDINGS: Limited views of the lower thorax are unremarkable. The liver is normal without focal lesion. There is no biliary ductal dilation. Gallbladder is normal. Pancreas is normal. Spleen is normal. Adrenal glands are normal. There are several stones in the right ureter. The stones began in the distal third of the ureter where there is a 7 x 5 mm stone. In the distal ureter there are two adjacent stones measuring up to 4 x 3 mm. At the right ureterovesical junction there is a 3 x 3 mm stone. There are numerous bilateral nonobstructing renal stones. There is moderate right-sided hydroureteronephrosis. Urinary bladder is normal. Bowel is normal in caliber without obstruction or inflammation. No free fluid or air. No abdominal or pelvic lymphadenopathy. Aorta is normal in caliber without aneurysm. There are no suspicious osseus lesions. IMPRESSION: 1. There are four stones in the right distal ureter measuring up to 7 x 5 mm with moderate right-sided hydroureteronephrosis. Dictated by: Dictated on workstation # [id number]
== END 2022-12-26 01:00 | disposition home or self-care (01) ==
LOC: EDUNIT# 22:36 → ER 22:37
DX: N13.2 Hydronephrosis with renal and ureteral calculous obstruction (principal); Z28.310 Unvaccinated for COVID-19
CPT/HCPCS: 36415; 74018; 74176; 80053; 81000; 84703; 85025